=== PATIENT | male | born 1985 | race Caucasian/White ===

== ENCOUNTER → 2018-09-18 | Outpatient (CLI) | payer BC ==
[~2018-09-18] MED LIST: DIATRIZOATE MEGL/DIATRIZOA SOD 30 ML BTL PO ONE; IOPAMIDOL 370 MG/ML 200 ML INFUS..BTL INJ ONE; SODIUM CHLORIDE 0.9% 50ML 50 ML ONE
--- NOTE | 2018-09-18 09:07 | Diagnostic Imaging Report ---
PROCEDURE: CT ABDOMEN AND PELVIS WITH CONTRAST TECHNIQUE: The abdomen and pelvis were scanned utilizing a multidetector helical scanner from the diaphragm to the lesser trochanter after the IV administration of 100 cc of Isovue 370 and the oral administration of 900 cc of Gastrografin/water. Coronal and sagittal multiplanar reformations were obtained. COMPARISON: None. INDICATIONS: LOWER ABDOMINAL PAIN FINDINGS: LOWER THORAX: Normal. HEPATOBILIARY: Mild diffuse fatty liver. Subcentimeter hypodense lesion in the right hepatic lobe is too small to characterize but likely represents a cyst. No other focal hepatic lesions. No biliary ductal dilatation. SPLEEN: No splenomegaly. PANCREAS: No focal masses or ductal dilatation. ADRENALS: No adrenal nodules. KIDNEYS/URETERS: No hydronephrosis, stones, or solid mass lesions. PELVIC ORGANS/BLADDER: Unremarkable. PERITONEUM / RETROPERITONEUM: No free air or fluid. LYMPH NODES: No lymphadenopathy. VESSELS: Unremarkable. GI TRACT: No distention or wall thickening. Normal appendix. BONES AND SOFT TISSUES: Unremarkable. IMPRESSION: Mild hepatic steatosis. Dictated by: TOMÁS LANE M.D. on 09/18/2018 at 9:15 Electronically approved by: TOMÁS LANE M.D. on 09/18/2018 at 9:15
== END ==
LOC: CT 07:21
PROVIDERS: ATTEND Internal Medicine Gastroenterology
DX: R10.30 Lower abdominal pain, unspecified (principal)
CPT/HCPCS: 74177; Q9967

== ENCOUNTER → 2018-10-07 | Outpatient (CLI) | payer BC ==
--- NOTE | 2018-10-07 12:34 | Diagnostic Imaging Report ---
EXAMINATION: Right upper quadrant ultrasound CLINICAL INDICATION: Fatty liver COMPARISON: None DISCUSSION: Transverse and longitudinal images of the right upper quadrant were obtained. The liver is normal in size measuring 15.5centimeters in length in the right midclavicular line and shows increased parenchymal echogenicity. No focal masses are seen in the liver. There is no intrahepatic biliary dilatation. The common bile duct is normal in caliber measuring 0.4 cm. the main portal vein is normal in caliber and measures 1.0 cm with expected hepatopetal flow. The gallbladder is normal in appearance without stones, wall thickening or pericholecystic fluid. The sonographic Darling's sign is reported as negative. The visualized portions of the pancreatic body are unremarkable. The right kidney measures 9.6 centimeters in length. There is normal renal cortical echogenicity and no hydronephrosis, mass or shadowing calculi. IVC is patent. Abdominal aorta is nonaneurysmal. No free fluid is seen. IMPRESSION: Increased hepatic parenchymal echogenicity compatible with steatosis. Otherwise unremarkable right upper quadrant ultrasound. Signed by: Dr. Mikael Kwon M.D. on 10/07/2018 12:31 PM
== END ==
LOC: US 11:15
PROVIDERS: ATTEND Internal Medicine Gastroenterology
DX: K76.0 Fatty (change of) liver, not elsewhere classified (principal)
CPT/HCPCS: 76705